=== PATIENT | male | born 1950 | race Caucasian/White ===

== ENCOUNTER 2018-03-08 22:57 | Emergency (ER) | payer OTHER ==
[~2018-03-08] VITALS: Ht 177.8 cm; Wt 77.3 kg
[2018-03-08 22:59] VITALS: Ht 177.8 cm; Wt 77.3 kg
[2018-03-08] MEDS ORDERED: PRINIVIL10 MG PO (23:00)
[2018-03-08 23:35] VITALS: BP 128/74
== END 2018-03-08 23:37 | disposition home or self-care (01) ==
LOC: D.ER 22:57
DX: S01.91XA Laceration without foreign body of unspecified part of head, initial encounter (principal); W18.09XA Striking against other object with subsequent fall, initial encounter; Y93.89 Activity, other specified; Y92.019 Unspecified place in single-family (private) house as the place of occurrence of the external cause; I10 Essential (primary) hypertension

== ENCOUNTER 2019-10-08 17:52 | Emergency (ER) | payer OTHER ==
[~2019-10-08] VITALS: Ht 177.8 cm; Wt 79.5 kg
[~2019-10-08 17:52] MED LIST: PRINIVIL10 MG PO
[2019-10-08 18:00] VITALS: Ht 177.8 cm; Wt 79.5 kg
[2019-10-08] MEDS ORDERED: NORVASC2.5 MG PO (20:17)
[2019-10-08 20:34] VITALS: BP 152/89
== END 2019-10-08 20:34 | disposition home or self-care (01) ==
LOC: D.ER 17:52
DX: T78.3XXA Angioneurotic edema, initial encounter (principal); R22.1 Localized swelling, mass and lump, neck; I10 Essential (primary) hypertension

== ENCOUNTER 2019-11-23 20:20 | Emergency (ER) | payer OTHER ==
[~2019-11-23] VITALS: Ht 177.8 cm; Wt 79.5 kg
[~2019-11-23 20:20] MED LIST changes: +NORVASC2.5 MG PO
[2019-11-23 20:25] VITALS: Ht 177.8 cm; Wt 79.5 kg
[2019-11-23 21:41] LABS: BASOPHILS 0.6 % (0-2); HEMATOCRIT 41.6 % (42.0-54.0); HEMOGLOBIN 13.9 g/dL (13.5-17.5); IMMATURE GRANULOCYTES 0.6 % (0-5); LYMPHOCYTES 43.5 % (15-50); MCH 32.3 pg (26.0-34.0); MCHC 33.4 g/dL (31.0-37.0); MCV 96.5 fL (80.0-100.0); MEAN PLATELET VOLUME 9.7 fL (7.4-10.4); MONOCYTES 13.1 % (2-11); NEUTROPHILS 39.2 % (40-80); PLATELET COUNT 260 10x3/uL (130-400); RBC 4.31 10x6/uL (4.20-6.10); RDW 12.4 % (11.5-14.5); WBC 8.3 10x3/uL (4.8-10.8)
[2019-11-23] MEDS ORDERED: STERAPRED DS 1010 MG PO (23:09)
[2019-11-23] MEDS ORDERED: PEPCID40 MG PO (23:09)
[2019-11-23 23:12] LABS: CALC OSMOLALITY 276 mosm/kg (275-300); CARBON DIOXIDE 26.5 mmol/L (21.0-32.0); CHLORIDE - SERUM 101 mmol/L (98-107); CREATININE - SERUM 0.7 mg/dL (0.6-1.3); GLUCOSE 107 mg/dL (74-106); POTASSIUM - SERUM 3.7 mmol/L (3.5-5.1); SODIUM 139 mmol/L (136-145); UREA NITROGEN 11 mg/dL (7-18); eGFR NON AFRICAN AMERICAN > 90 mL/min (90-120)
[2019-11-23 23:18] LABS: ALBUMIN 3.6 g/dL (3.4-5.0); ALKALINE PHOSPHATASE 58 U/L (30-120); ALT (SGPT) 25 U/L (10-68); BILIRUBIN - TOTAL 0.25 mg/dL (0.2-1.3); PROTEIN - SERUM 6.9 g/dL (6.4-8.2)
[2019-11-23 23:36] VITALS: BP 132/77
== END 2019-11-23 23:36 | disposition home or self-care (01) ==
LOC: D.ER 20:20
PROVIDERS: Family Medicine
DX: T78.3XXA Angioneurotic edema, initial encounter (principal); I10 Essential (primary) hypertension